=== PATIENT | female | born 1990 | race Caucasian/White ===

== ENCOUNTER 2018-09-07 02:30 | Emergency (ER) | payer SELFPAY ==
[2018-09-07 02:39] VITALS: BP 131/77; PULSE 76; TEMP 98.6; BMI 24.3
[2018-09-07] MEDS ORDERED: DIPHTH,PERTUSS(ACELL),TET 0.5 ML DISP.SYRIN IM ONE ×2 (02:42→02:43)
--- NOTE | 2018-09-07 02:43 | PDOC ---
History of Present Illness - General Chief Complaint: Laceration Stated Complaint: RT HAND LAC Time Seen by Provider: 09/07/18 02:37 History Source: Patient Exam Limitations: No Limitations - History of Present Illness Initial Comments: 09/07/18 02:41 This is a 27-year-old female who comes in with her significant other for evaluation of a hand laceration. Patient said she went to shut a door that had glass door shattered cutting her hand. Patient otherwise is not sure when her last tetanus shot was. Allergies: as per nursing notes Past Medical History: none Social history: Lives with family. No smoking. No alcohol. No illicit drugs. Surgical history: None General: No fevers or chills, no weakness, no weight loss HEENT: No change in vision. No sore throat,. No ear pain CardioVascular: no chest discomfort. No shortness of breath Respiratory:No cough, or wheezing. Gastrointestinal: no nausea, vomiting, diarrhea or constipation, No rectal bleeding Genitourinary: No dysuria, hematuria, or frequency Musculoskeletal: No joint or muscle pain or swelling, right hand laceration Neurologic: No headache, vertigo, dizziness or loss of consciousness Psychiatric: nor depression Skin: No rashes or easy bruising Endocrine: no increased thirst or abnormal weight change Allergic: no skin or latex allergy All other systems reviewed and normal GENERAL: The patient is awake, alert, and fully oriented, in no acute distress. HEAD: Normal with no signs of trauma. EYES: Pupils equal, round and reactive to light, extraocular movements intact, sclera anicteric, conjunctiva clear. EXTREMITIES:atraumatic, Normal range of motion, no edema. Right hand: There is a small superficial laceration approximately 1 cm in length on the dorsum of the hand neurovascular is intact NEUROLOGICAL: Normal speech, normal gait. PSYCH: Normal mood, normal affect. SKIN: Warm, Dry, normal turgor, no rashes or lesions noted. Procedure note laceration repair with Dermabond Laceration was cleaned and closed with Dermabond patient tolerated well Assessment and plan: This is 27-year-old female with a right hand laceration that was closed with Dermabond Past History - Past Medical History Allergies/Adverse Reactions: Allergies Allergy/AdvReac Type Severity Reaction Status Date / Time No Known Allergies Allergy Unverified 09/07/18 02:32 Home Medications: Ambulatory Orders NK [No Known Home Medication] 09/07/18 *DC/Admit/Observation/Transfer Diagnosis at time of Disposition: Laceration of right hand Qualifiers: Encounter type: initial encounter Foreign body presence: without foreign body Qualified Code(s): S61.411A - Laceration without foreign body of right hand, initial encounter - Discharge Dispostion Disposition: HOME Condition at time of disposition: Stable Decision to Admit order: No - Referrals - Patient Instructions Printed Discharge Instructions: DI for Laceration Repair With Dermabond Additional Instructions: Read over and follow the Dermabond instructions. No petroleum based products on the [place] will cause it, for early. Keep the hand dry for 72 hours wear a glove if you aren't going to take a shower or get your hand wet. Return to the emergency department immediately with ANY new, persistent or worsening symptoms. Continue any medications as previously prescribed by your physician. You should follow up with your primary doctor as soon as possible regarding today's emergency department visit. . Please make sure your doctor reviews the results of your emergency evaluation. Thank you for coming to the Emergency Department today for your care. It was a pleasure to see you today. Please note that your evaluation is INCOMPLETE until you follow-up with your doctor. - Post Discharge Activity
== END 2018-09-07 02:48 | disposition home or self-care (01) ==
LOC: FER 02:30
PROC: 0HQFXZZ Repair Right Hand Skin, External Approach (ICD-10-PCS; principal; 2018-09-07)
DX: S61.411A Laceration without foreign body of right hand, initial encounter (principal); W25.XXXA Contact with sharp glass, initial encounter; Y93.89 Activity, other specified; Y92.89 Other specified places as the place of occurrence of the external cause
CPT/HCPCS: 90715; 99281-25